=== PATIENT | female | born 1995 | race Two or more races ===

== ENCOUNTER 2020-02-20 08:37 | Emergency (ER) | payer SELFPAY ==
[~2020-02-20] VITALS: Ht 165.1 cm; Wt 93.9 kg
[2020-02-20] MEDS ORDERED: ONDANSETRON 2MG/ML, 2ML IVPush ONE (09:00)
[2020-02-20] MEDS ORDERED: FAMOTIDINE 20 MG/2 ML IV ONE (09:00)
[2020-02-20] MEDS ORDERED: SODIUM CHLORIDE 0.9% 1,000ML IVBOLUS ONE (09:00)
[2020-02-20] MEDS ORDERED: FAMOTIDINE 20 MG/2 ML ONE (09:14)
[2020-02-20] MEDS ORDERED: ONDANSETRON 2MG/ML, 2ML ONE (09:14)
[2020-02-20 09:33] LABS: BASOPHILS # (AUTO) 0.07 x10^3/uL (0-0.1); BASOPHILS % (AUTO) 1 % (0-1); EOSINOPHILS # (AUTO) 0.09 x10^3/uL (0-0.4); EOSINOPHILS % (AUTO) 1 % (1-7); LYMPHOCYTES # (AUTO) 1.75 x10^3/uL (1-3.4); LYMPHOCYTES % (AUTO) 14 % (22-44); MD NO; MEAN CORPUSCULAR HEMOGLOBIN 28.5 pg (27.0-34.8); MEAN CORPUSCULAR HGB CONC 33.2 g/dL (32.4-35.8); MEAN PLATELET VOLUME 8.7 fL (7.4-10.4); MONOCYTES # (AUTO) 0.77 x10^3/uL (0.2-0.8); MONOCYTES % (AUTO) 6 % (2-9); NEUTROPHILS # (AUTO) 9.53 x10^3/uL (1.8-6.8); NEUTROPHILS % (AUTO) 78 % (42-75); PLATELET COUNT 428 x10^3/uL (130-400); RED BLOOD COUNT 4.53 x10^6/uL (3.82-5.3)
--- NOTE | 2020-02-20 09:33 | NUR ---
IV STARTED, ORDERED MEDS HAVE BEEN GIVEN, US NOW AT BEDSIDE. PT ON MONITOR.
[2020-02-20 09:45] LABS: ALBUMIN 3.5 g/dL (3.4-5.0); ANION GAP 8 mmol/L (5-15); CALCIUM 9.3 mg/dL (8.5-10.1); CHLORIDE 108 mmol/L (98-107)
[2020-02-20 10:00] VITALS: BP 112/53
[2020-02-20 10:03] LABS: ALANINE AMINOTRANSFERASE 26 U/L (12-78); ALKALINE PHOSPHATASE 90 U/L (45-117); BILIRUBIN,TOTAL 0.5 mg/dL (0.2-1.0); CREATININE 0.61 mg/dL (0.55-1.02); TOTAL PROTEIN 7.5 g/dL (6.4-8.2)
[2020-02-20 10:45] LABS: MICROSCOPIC INDICATED
--- NOTE | 2020-02-20 11:15 | NUR ---
PT BACK FROM [place]
== END 2020-02-20 12:12 | disposition home or self-care (01) ==
LOC: ED 11:09
DX: O26.891 Other specified pregnancy related conditions, first trimester (principal); R11.2 Nausea with vomiting, unspecified; Z3A.01 Less than 8 weeks gestation of pregnancy
CPT/HCPCS: 36415; 76700; 76830; 80053; 81001; 83690; 84702; 85025; 86901; 87077; 87086; 96361; 96374; 96375; 99285; J2405; J3490; J7030; 87186

== ENCOUNTER 2020-08-01 15:36 | Emergency (ER) | payer MEDICAID ==
[~2020-08-01] VITALS: Ht 165.1 cm; Wt 97.6 kg
[2020-08-01 16:17] VITALS: BP 114/46
== END 2020-08-01 16:20 | disposition home or self-care (01) ==
LOC: ED 16:13
DX: O99.613 Diseases of the digestive system complicating pregnancy, third trimester (principal); K08.89 Other specified disorders of teeth and supporting structures; Z3A.31 31 weeks gestation of pregnancy
CPT/HCPCS: 99283